=== PATIENT | male | born 1965 | race Caucasian/White ===

== ENCOUNTER 2020-05-04 10:55 | Emergency (ER) | payer MEDICAID ==
[~2020-05-04] VITALS: Ht 157.5 cm; Wt 63.5 kg
[2020-05-04 10:57] VITALS: BP 122/89
--- NOTE | 2020-05-04 11:20 | NUR ---
PT SEEN AND EXAMINED BY .
== END 2020-05-04 11:54 | disposition home or self-care (01) ==
LOC: ER 11:01
DX: S61.231A Puncture wound without foreign body of left index finger without damage to nail, initial encounter (principal); Z60.2 Problems related to living alone; W25.XXXA Contact with sharp glass, initial encounter; Y93.89 Activity, other specified; Y92.89 Other specified places as the place of occurrence of the external cause; Y99.8 Other external cause status
CPT/HCPCS: 73130-TC